=== PATIENT | male | born 1995 | race Caucasian/White ===

== ENCOUNTER 2024-06-25 20:54 | Emergency (ER) | payer OTHER ==
[~2024-06-25] VITALS: Ht 162.6 cm; Wt 83.0 kg
[2024-06-25] MEDS ORDERED: CLEOCIN HCL300 MG PO (22:18)
[2024-06-25 22:24] VITALS: PULSE 76; RESP 16; TEMP 98.4; O2SAT 100
== END 2024-06-25 22:28 | disposition home or self-care (01) ==
LOC: ER 21:00
DX: S91.105A Unspecified open wound of left lesser toe(s) without damage to nail, initial encounter (principal); Q05.9 Spina bifida, unspecified; I10 Essential (primary) hypertension; K21.9 Gastro-esophageal reflux disease without esophagitis
CPT/HCPCS: 99283